=== PATIENT | female | born 1990 | race Two or more races ===

== ENCOUNTER → 2020-08-11 08:00 | Outpatient (CLI) | payer OTHER | END | disposition home or self-care (01) | LOC: PPH VACUNA 08:00 | DX: Z23 Encounter for immunization (principal) ==

== ENCOUNTER → 2021-01-28 14:10 | Outpatient (CLI) | payer OTHER | END | disposition home or self-care (01) | LOC: LAB 14:10 | PROVIDERS: ATTEND Internal Medicine Pulmonary Disease | DX: R05 Cough (principal); Z20.822 Contact with and (suspected) exposure to COVID-19; Z20.828 Contact with and (suspected) exposure to other viral communicable diseases; R06.02 Shortness of breath; R50.9 Fever, unspecified ==

== ENCOUNTER 2021-04-07 10:01 | Outpatient (CLI) | payer OTHER | END 2021-04-07 10:22 | disposition home or self-care (01) | LOC: LAB 10:01 | DX: Z20.828 Contact with and (suspected) exposure to other viral communicable diseases (principal) ==

== ENCOUNTER 2021-06-11 13:07 | Outpatient (CLI) | payer OTHER | END 2021-06-11 13:13 | disposition home or self-care (01) | LOC: LAB 13:07 | DX: U07.1 COVID-19 (principal); R05 Cough; R06.02 Shortness of breath ==

== ENCOUNTER 2021-08-20 08:00 | Outpatient (CLI) | payer OTHER | END 2021-08-20 08:30 | disposition home or self-care (01) | LOC: PPH VACUNA 08:00 | PROVIDERS: ATTEND Emergency Medicine Pediatric Emergency Medicine | DX: Z23 Encounter for immunization (principal) ==

== ENCOUNTER 2021-08-31 08:00 | Outpatient (CLI) | payer OTHER | END 2021-08-31 08:30 | disposition home or self-care (01) | LOC: PPH VACUNA 08:00 | PROVIDERS: ATTEND Emergency Medicine Pediatric Emergency Medicine | DX: Z23 Encounter for immunization (principal) ==

== ENCOUNTER 2021-11-24 09:09 | Outpatient (CLI) | payer OTHER | END 2021-11-24 09:10 | disposition home or self-care (01) | LOC: LAB 09:09 | PROVIDERS: ATTEND Specialist | DX: D64.89 Other specified anemias (principal); R10.9 Unspecified abdominal pain; N39.0 Urinary tract infection, site not specified; E11.9 Type 2 diabetes mellitus without complications; R73.09 Other abnormal glucose; E03.8 Other specified hypothyroidism ==

== ENCOUNTER 2022-05-31 10:15 | Outpatient (CLI) | payer OTHER | END 2022-05-31 10:21 | disposition home or self-care (01) | LOC: LAB 10:15 | PROVIDERS: ATTEND Specialist | DX: Z34.93 Encounter for supervision of normal pregnancy, unspecified, third trimester (principal) ==

== ENCOUNTER 2022-06-10 12:03 | Inpatient (IN) | payer OTHER ==
[~2022-06-10] VITALS: Ht 162.6 cm; Wt 3.2 kg
[2022-06-10] MEDS ORDERED: PRENATAL + DHA1 EAC1 (13:52)
[2022-06-10] MEDS ORDERED: PEPCID AC20 MG PO (13:52)
[2022-06-10] MEDS ORDERED: ZYRTEC10 M3 (13:52)
[2022-06-13] MEDS ORDERED: SURFAK240 M1 PO (09:13)
[2022-06-13] MEDS ORDERED: IBU800 MG PO (09:13)
[2022-06-13] MEDS ORDERED: INTEGRA PLUS C1 EACH PO (09:13)
== END 2022-06-13 13:45 | disposition home or self-care (01) | DRG 785 ==
LOC: LDR 12:03 → OB/GYN 21:47
PROVIDERS: ADMIT Specialist; ATTEND Specialist
PROC: 0UB70ZZ Excision of Bilateral Fallopian Tubes, Open Approach (ICD-10-PCS; 2022-06-10)
PROC: 4A1HXCZ Monitoring of Products of Conception, Cardiac Rate, External Approach (ICD-10-PCS; 2022-06-10)
PROC: 10D00Z1 Extraction of Products of Conception, Low, Open Approach (ICD-10-PCS; principal; 2022-06-10 19:00)
DX: O32.1XX0 Maternal care for breech presentation, not applicable or unspecified (principal); O13.3 Gestational [pregnancy-induced] hypertension without significant proteinuria, third trimester; Z3A.37 37 weeks gestation of pregnancy; Z37.0 Single live birth; Z20.822 Contact with and (suspected) exposure to COVID-19; Z30.2 Encounter for sterilization

== ENCOUNTER 2024-08-30 12:00 | Outpatient (CLI) | payer OTHER ==
[~2024-08-30 12:00] MED LIST: IBU800 MG PO; INTEGRA PLUS C1 EACH PO; PEPCID AC20 MG PO; PRENATAL + DHA1 EAC1; SURFAK240 M1 PO; ZYRTEC10 M3
== END 2024-08-30 12:15 | disposition home or self-care (01) ==
LOC: PPH VACUNA 12:00
PROVIDERS: ATTEND Emergency Medicine Pediatric Emergency Medicine
DX: Z23 Encounter for immunization (principal)

== ENCOUNTER 2024-09-17 13:55 | Outpatient (CLI) | payer OTHER | END 2024-09-17 14:06 | disposition home or self-care (01) | LOC: MAMO-SONO 13:55 | PROVIDERS: ATTEND Surgery | DX: N60.11 Diffuse cystic mastopathy of right breast (principal); N60.12 Diffuse cystic mastopathy of left breast ==

== ENCOUNTER 2025-04-25 09:15 | Outpatient (CLI) | payer OTHER ==
[2025-04-25 09:55] LABS: PH,URINE 5.5 (5.0-8.0); URINE APPEARANCE Clear; URINE BILIRRUBIN Negative (NEGATIVE); URINE BLOOD Negative; URINE COLOR Yellow; URINE GLUCOSE Negative (NEGATIVE); URINE KETONE Negative (NEGATIVE); URINE LEUKOCYTE Negative; URINE NITRATE Negative; URINE PROTEIN Negative (NEGATIVE); URINE UROBILINOGEN 0.2 E.U./dl
[2025-04-25 10:02] LABS: URINE BACTERIA 193.3 uL (0.0-1933); URINE EPITHELIAL CELLS 22.6 uL (0.0-38.8); URINE RBC 3.5 uL (0.0-20.8); URINE WBC 8.5 uL (0.0-23.2)
== END 2025-04-25 09:20 | disposition home or self-care (01) ==
LOC: LAB 09:15
PROVIDERS: ATTEND Urology
DX: N39.0 Urinary tract infection, site not specified (principal)

== ENCOUNTER 2025-06-18 08:33 | Outpatient (CLI) | payer OTHER ==
[2025-06-18 09:34] LABS: URINE APPEARANCE Cloudy; URINE BILIRRUBIN Negative (NEGATIVE); URINE BLOOD Moderate; URINE COLOR Dark Yellow; URINE GLUCOSE Negative (NEGATIVE); URINE KETONE Negative (NEGATIVE); URINE LEUKOCYTE Large; URINE NITRATE Positive; URINE PROTEIN Negative (NEGATIVE); URINE UROBILINOGEN 1.0 E.U./dl
[2025-06-18 09:44] LABS: URINE BACTERIA 463.1 uL (0.0-1933); URINE EPITHELIAL CELLS 19.2 uL (0.0-38.8); URINE RBC 20.5 uL (0.0-20.8); URINE WBC 670.9 uL (0.0-23.2)
[2025-06-18 10:04] LABS: URINE CAST 0.00 uL (0.0-1.40)
== END 2025-06-18 09:52 | disposition home or self-care (01) ==
LOC: LAB 08:33
PROVIDERS: ATTEND Urology
DX: N39.0 Urinary tract infection, site not specified (principal)

== ENCOUNTER → 2025-10-16 | Outpatient (CLI) | payer OTHER | END | disposition home or self-care (01) | LOC: SONOGRAMA 09:25 | PROVIDERS: ATTEND Obstetrics & Gynecology | DX: R10.20 Pelvic and perineal pain unspecified side (principal); N39.0 Urinary tract infection, site not specified ==